=== PATIENT | female | born 1980 | race African-American/Black ===

== ENCOUNTER 2024-12-21 19:24 | Emergency (ER) | payer BC ==
[2024-12-21 19:33] VITALS: RESP 18; TEMP 98.1; BMI 34.9
[2024-12-21] MEDS ORDERED: morphine SULFATE 4 MG/ML VIAL ONE (20:33)
[2024-12-21 21:01] LABS: ABSOLUTE IMMATURE GRANULOCYTES 0.06 x10^3/uL (0.0-0.031); BASOPHILS # 0.06 x10^3/uL (0.01-0.08); EOSINOPHIL % 1.5 % (0.7-5.8); HEMATOCRIT 36.2 % (34.1-44.9); HEMOGLOBIN 12.4 g/dL (11.2-15.7); MCHC 34.3 g/dl (32.2-35.5); MEAN PLT VOLUME 11.3 fl (9.4-12.3); MONOCYTE # 1.03 x10^3/uL (0.24-0.86); MONOCYTE % 7.8 % (4.7-12.5); PLATELET COUNT 240 x10^3/uL (182-369); RDW 11.9 % (12.2-17.1)
[2024-12-21] MEDS: morphine SULFATE 4 MG/ML VIAL IVPUSH ONE (21:10)
[2024-12-21] MEDS: ACETAMINOPHEN 500 MG TABLET (FP) PO ONE (21:11)
[2024-12-21 21:22] LABS: ACTIVATED PTT 25.1 SECONDS (25.2-36.5); INR 1.04 (0.83-1.09); PROTHROMBIN TIME (PATIENT) 11.4 SEC (9.7-13.0)
[2024-12-21 21:27] LABS: CHLORIDE 102 mmol/L (98-107); SODIUM 129 mmol/L (136-145)
[2024-12-21 21:29] LABS: CALCIUM 9.3 mg/dL (8.5-10.1)
[2024-12-21 21:30] LABS: ALBUMIN 3.6 g/dl (3.4-5.0); BLOOD UREA NITROGEN 11.9 mg/dL (7-18); CO2 25 mmol/L (21-32); GLUCOSE,RANDOM 85 mg/dL (74-106)
[2024-12-21 21:33] LABS: CREATININE 0.8 mg/dL (0.55-1.3); SGOT/AST 107 U/L (15-37)
[2024-12-21 21:35] LABS: BILIRUBIN,TOTAL 0.3 mg/dL (0.2-1); TOT PROT 7.9 g/dl (6.4-8.2)
[2024-12-21 21:36] LABS: ALK PHOS 55 U/L (45-117)
[2024-12-21 21:54] LABS: ANION GAP 2 mmol/L (4-13); POTASSIUM 7.6 mmol/L (3.5-5.1); SGPT/ALT 41 U/L (13-61)
[2024-12-21] MEDS ORDERED: IBUPROFEN 600 MG TABLET (FP) PO ONE (22:11)
[2024-12-21] MEDS ORDERED: ACETAMINOPHEN 325 MG TABLET (FP) ONE (22:12)
[2024-12-21] MEDS: ACETAMINOPHEN 325 MG TABLET (FP) PO ONE (22:25)
[2024-12-21 22:55] LABS: POTASSIUM 4.2 mmol/L (3.5-5.1)
[2024-12-21 22:56] LABS: CALCIUM 9.2 mg/dL (8.5-10.1)
[2024-12-21 22:57] LABS: BLOOD UREA NITROGEN 10.9 mg/dL (7-18)
[2024-12-21 23:00] LABS: CREATININE 0.7 mg/dL (0.55-1.3)
[2024-12-21] MEDS ORDERED: oxyCODONE HCL 5 MG TABLET ONE (23:20)
[2024-12-21] MEDS: oxyCODONE HCL 5 MG TABLET PO ONE (23:35)
[2024-12-21 23:42] VITALS: BP 136/89; PULSE 79
== END 2024-12-21 23:42 | disposition home or self-care (01) ==
LOC: JER 19:24
PROC: 3E033NZ Introduction of Analgesics, Hypnotics, Sedatives into Peripheral Vein, Percutaneous Approach (ICD-10-PCS; principal; 2024-12-21)
DX: N93.9 Abnormal uterine and vaginal bleeding, unspecified (principal); R10.31 Right lower quadrant pain; R10.32 Left lower quadrant pain
CPT/HCPCS: 36415; 76830-TC; 80048; 80053; 85025; 85610; 85730; 99285-25